=== PATIENT | male | born 1985 | race African-American/Black ===

== ENCOUNTER → 2017-03-02 | Outpatient (CLI) | payer OTHER ==
[~2017-03-02] MED LIST: AMLO10TA2 PO; AMOX-355 PO; AMOX250S5 PO; DEXAINTSOL PO; FLUT9.9S NS; HYDR15SO8 PO; LISI40TA PO; LORA-714 PO; LORA10TA7 PO; LORA2TAB PO; NF-ADDXR30 PO; OXYC-471 PO; RT-ALBUINH IH; TETRACAINESUCKERS MT
--- NOTE | 2017-03-02 18:02 | Diagnostic Imaging Report ---
Renal duplex ultrasound. INDICATION: Uncontrolled hypertension. FINDINGS: The right kidney is 11.6 cm and the left kidney is 12.8 cm in length. There is no hydronephrosis or focal lesion in either kidney. The proximal and mid right renal artery segments are obscured. The distal right renal artery velocity is 101 cm/s. Velocities in the left renal artery segments are 99, 68, and 65 cm/s from proximal to distal. The resistive index in the right kidney is 0.6-0.63 and on the left is 0.5-0.56. The urinary bladder appears unremarkable. IMPRESSION: Proximal and mid right renal artery segments are obscured by bowel gas. The left renal artery velocities are normal. Dictated by: Dictated on workstation # [id number]
== END ==
LOC: RAD 07:07
PROVIDERS: ATTEND Nurse Practitioner Family
DX: I10 Essential (primary) hypertension (principal)
CPT/HCPCS: 93975

== ENCOUNTER → 2021-10-27 | Outpatient (CLI) | payer OTHER ==
[~2021-10-27] MED LIST changes: +AMLO-251 PO; -AMLO10TA2 PO; +BICT1TAB PO; -LISI40TA PO; +LISI40TA9 PO; +LORA-53 PO; -LORA-714 PO; +NEBI20TA2 PO; -OXYC-471 PO; +OXYC1TAB11 PO; +VALS1TAB80 PO
--- NOTE | 2021-10-27 18:58 | Diagnostic Imaging Report ---
PROCEDURE: MRI left joint lower extremity without contrast. TECHNIQUE: Multiplanar, multisequence non contrast-enhanced MRI of the left lower extremity was accomplished. INDICATION: Rupture of the patellar tendon. Knee pain. Prior patellar tendon repair 15 years ago. Recent injury 2-3 weeks ago. EXAMINATION: MRI of the left knee without contrast 10/27/2021 FINDINGS: There is severe irregularity throughout the proximal aspect of the patellar tendon with a full-thickness tear of the proximal aspect of the tendon with retraction of approximately 2.1 cm. The more proximal patellar tendon is serpiginous in appearance with T2 hyperintensity proximally. There is a large amount of surrounding edema and fluid about the proximal patellar tendon/adjacent patella. There is a moderate joint effusion. A lobular abnormality within the subcutaneous soft tissues of the medial aspect of the knee is noted and nonspecific. It most likely represents a hematoma. This area measures 2 x 1.8 cm on axial imaging and contains a fluid/fluid level. Findings cause secondary patella odette with the distal quadriceps tendon not included therefore not well evaluated The PCL and the ACL appear intact. The MCL is intact. The lateral collateral ligamentous complex is intact. The medial and lateral menisci appear intact. Cartilage within the medial and lateral joint compartments appears preserved. Patellofemoral cartilage is grossly maintained other than minimal thinning overlying the medial facet. There is a small likely leaking Ramirez's cyst. IMPRESSION: 1. Full-thickness tear of the proximal patellar tendon with retraction and surrounding edema as described above with a secondary patella odette deformity. 2. Marked soft tissue abnormalities and joint effusion with a likely subcutaneous hematoma in the anteromedial aspect of the knee, as described above. 3. The remaining ligaments and tendons intact. 4. Menisci intact. Dictated by: Dictated on workstation # [id number]
== END ==
LOC: RAD 12:30
PROVIDERS: ATTEND Nurse Practitioner
DX: S86.812A Strain of other muscle(s) and tendon(s) at lower leg level, left leg, initial encounter (principal); X58.XXXA Exposure to other specified factors, initial encounter
CPT/HCPCS: 73721

== ENCOUNTER 2021-10-28 14:25 | Outpatient (CLI) | payer OTHER ==
[~2021-10-28] VITALS: Ht 180.3 cm; Wt 113.4 kg
[~2021-10-28 14:25] MED LIST changes: -BICT1TAB PO; -NEBI20TA2 PO; -VALS1TAB80 PO
[2021-10-28] MEDS ORDERED: BICT1TAB PO (16:01)
[2021-10-28] MEDS ORDERED: NEBI20TA2 PO (16:01)
[2021-10-28] MEDS ORDERED: VALS1TAB80 PO (16:01)
[2021-10-28] MEDS ORDERED: RT-ALBUINH IH (16:14)
== END 2021-10-28 16:30 | disposition home or self-care (01) ==
LOC: PREOP 14:25
PROVIDERS: ATTEND Orthopaedic Surgery
DX: Z01.818 Encounter for other preprocedural examination (principal)

== ENCOUNTER 2021-10-29 09:00 | Day surgery (SDC) | payer OTHER ==
--- NOTE | 2021-10-28 16:19 | HISTORY AND PHYSICAL ---
DATE OF SERVICE: ADMISSION HISTORY AND PHYSICAL DATE OF ADMISSION: 10/29/2021. This will be for outpatient surgery on 10/29/2021 for left patellar tendon repair. HISTORY OF PRESENT ILLNESS: The patient is a 36-year-old gentleman, who underwent a left patellar tendon repair 15 years ago. He had done well since then; however, he was helping a friend move and felt a pop in his left knee with associated pain and swelling. Ultimately, he underwent an MRI, which revealed disruption of his patellar tendon his patella. Because of this, it was recommended the patient undergo operative fixation. REVIEW OF SYSTEMS: No chest pain, no shortness of breath, and no dysuria. PAST MEDICAL HISTORY: Patellar tendon rupture, hypertension, and HIV positive as well. PAST SURGICAL HISTORY: Patellar tendon repair, tonsillectomy, and septoplasty. PRIMARY CARE PROVIDER: Dr. Tere Ambrose. MEDICATIONS: Amlodipine, lorazepam, Biktarvy, Bystolic, and nebivolol. ALLERGIES: No known. SOCIAL HISTORY: The patient smokes a quarter pack of cigarettes per day. Drinks alcohol occasionally. PHYSICAL EXAMINATION: GENERAL: The patient is well-developed, well-nourished, in no acute distress. HEENT: Normocephalic and atraumatic. Pupils are equal, round, and reactive to light. Oropharynx is clear. NECK: Supple and no lymphadenopathy. LUNGS: Clear to auscultation bilaterally. HEART: Regular rate and rhythm. ABDOMEN: Soft, nontender, and nondistended. EXTREMITIES: The patient is unable to extend his left knee or maintain extension. There is a palpable defect inferior to his patella. There is patella odette noted. IMPRESSION: Left patellar tendon disruption. PLAN: Left patellar tendon repair. The risks, benefits, options, ramifications, and recovery were discussed at length with the patient. He understands and wishes to proceed. Job ID: [id number] DocumentID: [id number] Dictated Date: 10/28/2021 13:37:35 [employer] Date: 10/28/2021 16:18:47 Dictated By: PIO HUDSON MD
[2021-10-29] VITALS (11 sets, daily range): BP systolic 150–190; BP diastolic 91–112
[~2021-10-29] VITALS: Ht 180.3 cm; Wt 113.4 kg
[~2021-10-29 09:00] MED LIST changes: +BICT1TAB PO; +NEBI20TA2 PO; +VALS1TAB80 PO; +oxyCODONE/APAP 5/325MG (PERCOCET 5) TABLET PO PRN
[2021-10-29] MEDS ORDERED: ceFAZolin INJECTION 1,000 MG VIAL IV ONE (09:15)
--- NOTE | 2021-10-29 09:57 | Progress Note-Pre Operative ---
Pre-Operative Progress Note H&P Reviewed The H&P was reviewed, patient examined and no changes noted. Date Seen by Provider: Oct 29, 2021 Time Seen by Provider: 09:55 Date H&P Reviewed: Oct 29, 2021 Time H&P Reviewed: 09:55 Pre-Operative Diagnosis: left patella tendon tear PIO HUDSON MD Oct 29, 2021 09:57
--- NOTE | 2021-10-29 09:58 | Progress Note-Post Operative ---
Post-Operative Progess Note Surgeon (s)/Sod Cutter (s) Surgeon PIO HUDSON MD Sod Cutter: Bigg Bunch Pre-Operative Diagnosis left patella tendon tear Post-Operative Diagnosis left patella tendon tear Procedure & Operative Findings Date of Procedure 10/29/21 Procedure Performed/Findings left patella tendon repair Anesthesia Type GETA Estimated Blood Loss Estimated blood loss (mL): 50ml Specimens/Packing Specimens Removed none Packing: none PIO HUDSON MD Oct 29, 2021 09:58
[2021-10-29] MEDS: LACTATED RINGERS 1,000 ML IV PRN ×2 (10:00→11:20)
[2021-10-29] MEDS ORDERED: BUPIVACAINE 0.5% 30 ML (SENSORCAINE) VIAL ONE (10:07)
[2021-10-29] MEDS ORDERED: ONDANSETRON 4 MG/2 ML (SDV) Z0FRAN ONE (10:12)
[2021-10-29] MEDS ORDERED: SEVOFLURANE (ULTANE) 15 ML INHAL SOLN ONE ×3 (10:12→11:58)
[2021-10-29] MEDS ORDERED: LIDOCAINE PF 2% 5 ML (XYLOCAINE) VIAL ONE (10:12)
[2021-10-29] MEDS ORDERED: proPOfol 200 MG/20 ML (DIPRIVAN) VIAL IV ONE (10:12)
[2021-10-29] MEDS ORDERED: fentaNYL INJ 100 MCG/2 ML AMP ONE (10:13)
[2021-10-29] MEDS ORDERED: MIDAZOLAM 2 MG/2 ML (VERSED) VIAL ONE (10:13)
[2021-10-29] MEDS ORDERED: ceFAZolin INJECTION 1,000 MG ONE (10:48)
[2021-10-29] MEDS ORDERED: ROCURONIUM 50 MG/5 ML (ZEMURON) VIAL IV ONE (11:02)
[2021-10-29] MEDS ORDERED: morphine INJ 10 MG/ML 1ML (SYR OR VIAL) ONE (11:16)
--- NOTE | 2021-10-29 12:08 | Anesthesia-General Post-Op ---
General Patient Condition Mental Status/LOC: Same as Preop Cardiovascular: Satisfactory Nausea/Vomiting: Absent Respiratory: Satisfactory Pain: Controlled Complications: Absent Post Op Complications Complications None Follow Up Care/Instructions Patient Instructions None needed. Anesthesia/Patient Condition Patient Condition Patient is doing well, no complaints, stable vital signs, no apparent adverse anesthesia problems. No complications reported per nursing. AKIRA CAMPBELL CRNA Oct 29, 2021 12:08
[2021-10-29] MEDS ORDERED: fentaNYL INJ 100 MCG/2 ML AMP IVP ONE (12:15)
[2021-10-29] MEDS ORDERED: ONDANSETRON 4 MG/2 ML (SDV) Z0FRAN IVP PRN (12:15)
[2021-10-29] MEDS ORDERED: morphine INJ 10 MG/ML 1ML (SYR OR VIAL) IVP ONE (12:15)
[2021-10-29] MEDS ORDERED: MEPERIDINE (DEMEROL) INJ 50 MG/ML IVP ONE (12:15)
[2021-10-29] MEDS ORDERED: MEPERIDINE (DEMEROL) INJ 50 MG/ML ONE (12:16)
--- NOTE | 2021-10-29 16:01 | Physical Therapy Ortho Eval ---
PT Orthopedic Evaluation Type of Surgery Prior Level of Function Current Living Status: Friend Locomotion (Upon Admit): Independent Established Durable Medical Eq: None Subjective Subjective Patient rates pain in right knee at 5/10. Reports he has no steps to get into his apartment. Reports this is the second time he has had this surgery and is very familiar with use of crutches. Motor Control Motor Control: Motor Control WNL ROM ROM: WFL, except focal deficit Strength Strength: WFL Transfer SCALE: Activities may be completed with or without assistive devices. 4-Vknwfdicdv-fbodany completes the activity by him/herself with no assistance from a helper. 5-Set-up or Clean-up Assistance-helper sets up or cleans up; patient completes activity. Lawrence assists only prior to or following the activity. 4-Supervision or Touching Assistance-helper provides verbal cues and/or touching/steadying and/or contact guard assistance as patient completes activity. Assistance may be provided throughout the activity or intermittently. 3-Partial/Moderate Assistance-helper does LESS THAN HALF the effort. Lawrence lift s, holds or supports trunk or limbs, but provides less than half the effort. 2-Substantial/Maximal Assistance-helper does MORE THAN HALF the effort. Lawrence lifts or holds trunk or limbs and provides more than half the effort. 2-Fwordraqp-zclpca does ALL the effort. Patient does none of the effort to complete the activity. Or, the assistance of 2 or more helpers is required for the patient to complete the activity. If activity was not attempted, code reason: 7-Patient Refused. 9-Not Applicable-not attempted and the patient did not perform the activity before the current illness, exacerbation or injury. 10-Not Attempted due to Environmental Limitations-(lack of equipment, weather restraints, etc.). 88-Not Attempted due to Medical Conditions or Safety Concerns. Transfers (B, C, W/C) (QC): 4 Gait Gait Assistive Device: Crutches Right Lower Extremity: Right Weight Bearing Status RLE: Weight Bearing/Tolerated Left Lower Extremity: Left Weight Bearing Status LLE: Full Weight Bearing Gait (QC): 4 Distance: 60 Gait Level of Assist: 4 Treatment Rendered Treatment: Gait Train Assessment/Goals Goal Time Frame: 1 Visit Safe Ambulation: Yes Plan Treatment Plan: Discharge Time Time In: 1400 Time Out: 1415 Total Billed Treatment Time: 15 Billed Treatment Time Visit, EVm TOCCI,VON PT Oct 29, 2021 16:01
--- NOTE | 2021-10-29 19:35 | OPERATIVE REPORT ---
DATE OF SERVICE: 10/29/2021 PREOPERATIVE DIAGNOSIS: Left patellar tendon tear. POSTOPERATIVE DIAGNOSIS: Left patellar tendon tear. PROCEDURE: Left patellar tendon repair. SURGEON: David Hudson MD STATUE CARVER: Bigg Bunch, who assisted throughout the procedure and closed the incision. ANESTHESIA: General endotracheal by Edith Crystal CRNA. TOURNIQUET TIME: Approximately 60 minutes at 300 mmHg. ESTIMATED BLOOD LOSS: Minimal. DRAINS: None. COMPLICATIONS: None. POSTOPERATIVE PLAN: 0 to 40 degrees range of motion for the first two weeks advancing sequentially following that with weightbearing as tolerated. The patient was transferred to the recovery room awake and in stable condition. STATEMENT OF MEDICAL NECESSITY: The patient is a 36-year-old gentleman who approximately 2 weeks ago was going downstairs and felt a pop in his knee. He was unable to extend his knee. Ultimately, an MRI was obtained, which revealed a patellar tendon disruption. Because of this, it was recommended the patient undergo operative fixation. DESCRIPTION OF PROCEDURE: After risks and benefits of procedure were discussed and questions were answered, an informed consent was signed and placed on chart, the operative site was confirmed in the preoperative holding area initialed by the surgeon. The patient was then transferred to the operating room and after adequate levels of general endotracheal anesthetic were obtained, a timeout was called, confirming the operative site. The left lower extremity was prepped and draped in the usual sterile fashion with the leg elevated and the knee flexed. Tourniquet was inflated to 300 mmHg. The previous incision was utilized. The underlying soft tissues were carefully dissected. The patellar tendon was found to be completely disrupted from the patellar attachment site and there was a retinacular disruption both medially and laterally using #5 Tevdek suture. A running Doland suture was placed using 2 sutures going from proximal to distal creating forearms from the proximal stump of the tendon. Three drill holes were then placed and the patellar tendon, one medially, one centrally and one laterally. The sutures were then passed through these bone tunnels and out the superior aspect of the patella. These drill holes were ensured that they did not penetrate intraarticularly by finger dissection. The sutures were passed over bony bridges and then tied with the knee held in full extension and excellent repair was obtained. The knee was flexed and the repair was stable. A longitudinal split had been made in the quadriceps tendon at the point where the sutures were tied on the proximal pole of the patella. This was closed with #5 Tevdek in [id number] interrupted fashion. The joint was copiously irrigated and the retinacular defect was closed with #1 Vicryl in qjzdbr-[id number]-miraq interrupted fashion. The wound was further irrigated, 0 Vicryl was used to deep subcutaneous layer, 2-0 Vicryl for the superficial subcutaneous layer, phillip used on the skin. Prior to wound closure, the knee was flexed to 90 degrees and the repair was stable. After phillip were placed, a soft dressing and brace were applied and the patient was transferred to the recovery room awake and in stable condition. Job ID: [id number] DocumentID: [id number] Dictated Date: 10/29/2021 12:05:05 Thread Spooler Date: 10/29/2021 19:34:44 Dictated By: DAVID HUDSON MD
== END 2021-10-29 14:45 | disposition home or self-care (01) ==
LOC: SDC 09:00
PROVIDERS: ATTEND Orthopaedic Surgery
DX: S76.112A Strain of left quadriceps muscle, fascia and tendon, initial encounter (principal); S86.812A Strain of other muscle(s) and tendon(s) at lower leg level, left leg, initial encounter
CPT/HCPCS: 87081

== ENCOUNTER 2022-12-25 07:07 | Emergency (ER) | payer BC, MEDICAID ==
[~2022-12-25] VITALS: Ht 177.8 cm; Wt 113.9 kg
[~2022-12-25 07:07] MED LIST changes: +ALBU8.5H6 IH; +LORA-1389 PO; -LORA-53 PO; -oxyCODONE/APAP 5/325MG (PERCOCET 5) TABLET PO PRN
[2022-12-25] MEDS ORDERED: HYDROcodone/ACETAMINOPHEN 7.5 MG/325 MG TABLET PO ONE (07:45)
--- NOTE | 2022-12-25 07:58 | ED Lower Extremity ---
General Chief Complaint: Lower Extremity Stated Complaint: LEG PAIN Nursing Triage Note: PT BROUGHT IN BY [facility] FROM HOME WITH COMPLAINT BILATERAL FOOT PAIN. HAS HX OF GOUT. STATES TOOK IBUPROFEN AND TYLENOL AT 0500. Source: patient Exam Limitations: no limitations (MAX VUONG) History of Present Illness Date Seen by Provider: Dec 25, 2022 Time Seen by Provider: 07:35 Initial Comments 37yo M with PMH gout, HIV, and asthma presents to the ED via EMS for new onset R ankle pain that started 6 days ago and worsened 36hrs ago. Pt states that pain started suddenly in his R heel while he walking and then spread to whole ankle joint and mid foot. Pt denies having stepped oddly or injury prior to pain. Pt states that following onset, he began to experience swelling of ankle joint to toes that was so severe at times that it caused his toes to go numb. Pt states that pain is a constant 10/10 throb that becomes sharp with radiation up to knee with any kind of movement. Pt notes that he feels like his pain is mostly in his "achilles", heel, and instep. Over the last 36hours, pt states that pain became so severe that he was unable to leave bed to eat or use restroom, which concerned his neighbors prompting them to call EMS for ED transfer. Pt states that he has been taking 800mg Ibuprofen and 650mg Tylenol every 5 hours for the past 36 hours with some relief. Last doses were at 5 am this morning. Pt currently rates pain a 7/10 and notes swelling has improved since taking medication. Pt states that he has been experiencing "flare ups" of pain in R ankle every since his last patellar rupture repair in L leg. Pt states that he feels like he has been compensating with right leg since then and experienced pain with increased activity or sedentation. Pt denies having done either of these prior to onset. Pt says that these flares are normally not as severe and self resolving. Pt has h/o gout in his R big toe, last flare was some time last year. Does not currently take any medications for gout. Pt states that current episode feels similar to when he has gout but more severe. Pt notes associated 2/10 intermittent, frontal ELLIOTT that he attributes to his elevated BP over the past few days, mild sore throat, subjective fever and chills, and intermittent nausea secondary to pain. Denies recent illness, injuries, abrasions to ankle or surrounding areas, abd pain, vomiting, CP, SOA, cough, and rhinorrhea. Onset: last week Severity: moderate Pain/Injury Location: right foot, right ankle Method of Injury: other (none) Modifying Factors: Improves With Immobilization (improves), Improves With Movement (exacerbates), Improves With Pain Medication (improves) (MAX VUONG) Allergies and Home Medications Allergies Coded Allergies: No Known Drug Allergies (Unverified , 10/28/21) Patient Home Medication List Home Medication List Reviewed: Yes (MAX VUONG) Albuterol Sulfate (Ventolin Hfa) 1 Puff Puff, 2 PUFF IH UD, (Reported) Entered as Reported by: VIDHI ESTEVEZ on 10/28/21 1614 Amlodipine Besylate (Amlodipine Besylate) 10 Mg Tablet, 10 MG PO DAILY, (Repor bob) Entered as Reported by: ZIYAD ALBRIGHT on 05/29/15 0815 Bictegrav/Emtricit/Tenofov Ala (Biktarvy 50-200-25 mg Tablet) 50 Mg-200 Mg-25 Mg Tablet, 1 EACH PO DAILY, (Reported) Entered as Reported by: VIDHI ESTEVEZ on 10/28/21 1601 Dextroamphetamine/Amphetamine (Adderall Xr 30 mg Capsule) 30 Mg Cap.er.24h, 30 MG PO DAILY, (Reported) Entered as Reported by: ZIYAD ALBRIGHT on 05/29/15 0815 Loratadine (Loratadine) 10 Mg Tablet, 10 MG PO DAILY, (Reported) Entered as Reported by: ASHLY STEWARD on 11/21/15 1002 Lorazepam (Lorazepam) 2 Mg Tablet, 2 MG PO PRN, (Reported) Entered as Reported by: NEIL DOLAN on 11/29/15 0702 Nebivolol HCl (Bystolic) 20 Mg Tablet, 20 MG PO DAILY, (Reported) Entered as Reported by: VIDHI ESTEVEZ on 10/28/21 1601 Valsartan/Hydrochlorothiazide (Valsartan-Hctz 320-25 mg Tab) 320 Mg-25 Mg Tablet, 1 EACH PO DAILY, (Reported) Entered as Reported by: VIDHI ESTEVEZ on 10/28/21 1601 Review of Systems Constitutional: chills, fever (subjective) EENTM: no symptoms reported Respiratory: no symptoms reported Cardiovascular: no symptoms reported Gastrointestinal: No abdominal pain, No diarrhea; nausea (secondary to pain); No vomiting Genitourinary: no symptoms reported Musculoskeletal: joint pain (R ankle pain), joint swelling (R ankle) Skin: no symptoms reported Psychiatric/Neurological: No Symptoms Reported (MAX VUONG) All Other Systems Reviewed Negative Unless Noted: Yes (MAX VUONG) Past Rocbpto-Zrovlu-Nbwazl Hx Patient Social History Tobacco Use?: Yes Tobacco type used: Cigarettes Smoking Status: Current Everyday Smoker Use of E-Cig and/or Vaping dev: No Substance use?: No Alcohol Use?: No Pt feels they are or have been: No (MAX VUONG) Immunizations Up To Date First/Initial COVID19 Vaccinat: 06/2020 Second COVID19 Vaccination [place]: 07/2020 Third COVID19 Vaccination Date: 06/2020 (MAX VUONG) Seasonal Allergies Seasonal Allergies: Yes (MAX VUONG) Past Medical History Surgeries: Yes (ORCHIOPEXY, PATELLAR TENDON REPAIR X2 LEFT, WISDOM TEETH, SEPTOPLASTY) Tonsillectomy Respiratory: Yes Asthma, Sleep Apnea Currently Using CPAP: No Cardiac: Yes (FAMILY HX OF ENLARGED HEART, TACHYCARDIC- DOESN'T SEE CARDIO. PCP MANAGES) Hypertension, Irregular Heartbeat, Palpitations Neurological: No Sexually Transmitted Disease: No HIV/AIDS: Yes (UNDETECTABLE HIV- ASYMPTOMATIC, ON RETROVIRALS) Genitourinary: No Gastrointestinal: No Musculoskeletal: Yes Arthritis, Gout Endocrine: No HEENT: No Loss of Vision: Denies Hearing Impairment: Denies Cancer: No Psychosocial: Yes (MILD DEPRESSION, SEASONAL DEPRESSIONAL) ADD/ADHD, Anxiety Integumentary: Yes (SENSITIVE SKIN) Blood Disorders: No Adverse Reaction/Blood Tranf: No (MAX VUONG) Family Medical History Cerebral Aneurysm (Father), Hypertension (Grandmother and mother) (MAX VUONG) Physical Exam Vital Signs Vital Signs - First Documented 12/25/22 07:07 Temp 36.8 Pulse 85 Resp 16 B/P (MAP) 171/102 (125) Pulse Ox 100 O2 Delivery Room Air (ANDREY SCHUMACHER MD) Vital Signs Capillary Refill : (MAX VUONG) Height, Weight, BMI Height: 5'10.00" Weight: 258lbs. 0.0oz. [id number]; 36.00 BMI Method: General Appearance: WD/WN, no apparent distress HEENT: PERRL/EOMI Cardiovascular: regular rate, rhythm, no murmur Respiratory: lungs clear, normal breath sounds, no respiratory distress, no accessory muscle use Gastrointestinal: normal bowel sounds, non tender, soft Legs: bilateral leg non-tender, bilateral leg normal range of motion, bilateral leg no evidence of injury Knees: bilateral knee non-tender, bilateral knee normal inspection (Vertical surgical scar located on L knee), bilateral knee normal range of motion, bilateral knee no evidence of injury Ankles: left ankle non-tender, left ankle normal inspection, left ankle normal range of motion; right ankle no evidence of injury, right ankle limited range of motion (active secondary to pain, full ROM passively), right ankle pain (with movement, worse with plantarflexion), right ankle soft tissue tenderness (ankle and mid foot, achilles, instep, heel, and plantar fascia), right ankle swelling (ankle to mid foot) Feet: left foot non-tender, left foot normal inspection, left foot normal range of motion; right foot no evidence of injury, right foot pain (with movement, worse with plantarflexion), right foot soft tissue tenderness (mid foot, heel, achilles tendon, plantar fascia, instep), right foot swelling (ankle and mid foot) Neurologic/Tendon: normal sensation, normal motor functions, normal tendon functions Neurologic/Psychiatric: alert, normal mood/affect, oriented x 3 Skin: normal color, warm/dry, other (swelling and warmth of R ankle and mid foot, no erythema noted ) Lymphatic: no adenopathy (MAX VUONG) Progress/Results/Core Measures Results/Orders My Orders Orders - ANDREY SCHUMACHER MD Ankle, Right, 3 Views (12/25/22 07:42) Hydrocodone/Apap 7.5/325 Tab (Hydrocodon (12/25/22 07:45) Colchicine Tablet (Colchicine Tablet) (12/25/22 08:30) (ANDREY SCHUMACHER MD) Medications Given in ED Current Medications Medications Dose Ordered Sig/Ashia Route Start Time Stop Time Status Last Admin Dose Admin Acetaminophen/ Hydrocodone Bitart 1 ea ONCE ONCE PO 12/25/22 07:45 12/25/22 07:46 DC 12/25/22 08:12 1 EA (ANDREY SCHUMACHER MD) Vital Signs/I&O 12/25/22 07:07 Temp 36.8 Pulse 85 Resp 16 B/P (MAP) 171/102 (125) Pulse Ox 100 O2 Delivery Room Air (ANDREY SCHUMACHER MD) Blood Pressure Mean: 125 Progress Progress Note : Time: : Progress Note Patient seen and evaluated by me. I have reviewed the medical student's documentation and agree. Evaluation today includes physical exam, 3 views of the right ankle. Pertinent physical exam findings well-developed well-nourished male in no acute distress. He has moderate swelling around the right ankle joint into the dorsum of the right foot. Tender to palpation along the instep as well as the Achilles and bilateral malleoli. No deformity is noted. Intact pulses. The ankle joint is very warm. No open wounds. No rashes, no proximal lymphangitic streaking. Knee exam is benign. (Patient with a history of gout that normally attacks the MTP joint of his right foot. Has had no other areas of inflammation. He states his last episode of gout was approximately a month ago) Differential diagnosis based on history and physical exam acute gouty arthropathy right ankle, X-rays independently reviewed and interpreted by me. No obvious bony deformity. Does not appear to have a significant amount of fluid in the joint. Patient is treated with a 7.5 mg hydrocodone here in the ER. He was also treated presumptively for gout with 1.2 mg of oral colchicine. He states that he has had labs within the last month that revealed normal renal function. We will give him another 0.6 mg tablet at the pharmacy as well as 2 days of pain medication. Patient is cautioned on his ibuprofen usage. Elevation for swelling. Return precautions provided in both verbal and written format. (ANDREY SCHUMACHER MD) Diagnostic Imaging Diagonstic Imaging: Xray Comments [facility]. [place], [place] NAME: YOJANA TERRY MED REC#: [id number] PT STATUS: REG ER : 1985 PHYSICIAN: ANDREY SCHUMACHER MD ADMIT DATE: 12/25/22/ER Draft Date of Exam:12/25/22 ANKLE, RIGHT, 3 VIEWS INDICATION: right ankle pain and swelling, heat TECHNIQUE: Three views of the right ankle CORRELATION STUDY: None FINDINGS: The bony alignment is anatomic. The talar dome is intact. The ankle mortise is maintained. There is no acute fracture or dislocation. No bony erosive changes. Rather prominent soft tissue swelling. IMPRESSION: Negative for acute bony abnormality of the ankle. Prominent soft tissue swelling. Dictated on workstation # [id number] Dict: 12/25/22813 Trans: 12/25/22814 DO [id number] Interpreted by: CRISTINA ULLOA DO Electronically signed by: (ANDREY SCHUMACHER MD) Departure Impression Primary Impression: Acute gout Qualified Codes: M10.9 - Gout, unspecified Disposition: 01 HOME, SELF-CARE Condition: Stable Departure-Patient Inst. Decision time for Depature: 08:27 (ANDREY SCHUMACHER MD) Referrals: RAH MICHEL MD (PCP/Family) Primary Care Physician Patient Instructions: Gout ED Add. Discharge Instructions: You can elevate the right leg to help decrease swelling. You will need to take another Colchicine tablet in 1 hour - 0.6mg. I have sent a prescription for Hydrocodone 5mg tablets. Take this with one extra strength Tylenol every 6 hours for severe pain. Make sure you are taking only 4 Ibuprofen every 8 hours. And if you are taking this much Ibuprofen on a daily basis - you should be on an acid lab clerk to help avoid stomach upset/ ulcers. Consider a generic Prilosec (20mg) daily. If you develop any fever, redness, streaking up the leg or other concerns, please return to the Emergency Department for re-evaluation. Please follow up with your primary care doctor to discuss prevention of gout flares. Scripts Hydrocodone/Acetaminophen (Hydrocodone-Acetamin 5-325 mg) 5 Mg-325 Mg Tablet 1 TAB PO Q6H PRN for PAIN-MODERATE (5-7), #8 TAB Prov: ANDREY SCHUMACHER MD 12/25/22 Colchicine (Colchicine) 0.6 Mg Capsule 0.6 MG PO ONCE, #1 CAP Please take this 1 hour after your dose in the ER Prov: ANDREY SCHUMACHER MD 12/25/22 Copy Copies To 1: RAH MICHEL MD, TAYLOR Dec 25, 2022 07:57 ANDREY SCHUMACHER MD Dec 25, 2022 08:30
--- NOTE | 2022-12-25 08:15 | Diagnostic Imaging Report ---
INDICATION: right ankle pain and swelling, heat TECHNIQUE: Three views of the right ankle CORRELATION STUDY: None FINDINGS: The bony alignment is anatomic. The talar dome is intact. The ankle mortise is maintained. There is no acute fracture or dislocation. No bony erosive changes. Rather prominent soft tissue swelling. IMPRESSION: Negative for acute bony abnormality of the ankle. Prominent soft tissue swelling. Dictated by: Dictated on workstation # [id number]
[2022-12-25] MEDS ORDERED: COLCHICINE 0.6 MG TABLET PO ONE (08:30)
[2022-12-25] MEDS ORDERED: ACHD5005 PO (08:31)
[2022-12-25] MEDS ORDERED: COLC0.6C3 PO (08:31)
[2022-12-25 09:22] VITALS: BP 163/97
== END 2022-12-25 09:22 | disposition home or self-care (01) ==
LOC: EDUNIT# 07:10 → ER 07:11
DX: M10.9 Gout, unspecified (principal); F17.210 Nicotine dependence, cigarettes, uncomplicated
CPT/HCPCS: 73610